=== PATIENT | female | born 1985 | race Caucasian/White ===

== ENCOUNTER 2017-10-28 19:41 | Emergency (ER) ==
[2017-10-28 19:45] VITALS: BP 124/83; TEMP 97.5; BMI 25.7
[2017-10-28] MEDS ORDERED: AUGMENTIN 500-125 MG TAB PO STA (20:01)
[2017-10-28] MEDS ORDERED: DECADRON 4 MG/ML SDV IM STA (20:01)
--- NOTE | 2017-10-28 20:04 | ED.PDOC ---
General ED Provider: Dr. KATRINA ESCOBAR Chief Complaint: Respiratory Complaint Stated Complaint: Came for the sinus headache, right side of the face and throat pain. Rt ear hurts and draing clear fluid. Taking tyleol 3-4 times Time Seen by Physician: 20:01 Mode of Arrival: Walk-In Information Source: Patient Primary Care Provider: SHANICE OCONNOR Nursing and Triage Documentation Reviewed and Agree: Yes Reviewed sepsis parameters & appropriate labs ordered?: No System Inflammatory Response Syndrome: Not Applicable Sepsis Protocol: For patient's 13 years and over: Temp is 96.8 and below OR 101 and greater Pulse >90 BPM Resp >20/minute Acutely Altered Mental Status Are patient's symptoms suggestive of a new infection, such as: -Pneumonia -Skin, Soft Tissue -Endocarditis -UTI -Bone, Joint Infection -Implantable Device -Acute Abdominal Infection -Wound Infection -Meningitis -Blood Stream Catheter Infection -Unknown EENT Complaint Exam - Nasal Complaint/Exam Symptoms Are: Still present Timing: Constant Initial Severity: Moderate Current Severity: Moderate Location: Right, Left Aggravating: Reports: URI Alleviating: Reports: None Associated Signs and Symptoms: Reports: Nasal congestion, Sinus pain, Nasal discharge Related History: Reports: Similar episode Nasal Surgical History: Reports: None Foreign Body Present: No Differential Diagnoses: Sinusitis Review of Systems - Review Of Systems Constitutional: Reports: No symptoms Eyes: Reports: No symptoms Ears, Nose, Mouth, Throat: Reports: Ear pain, Ear discharge, Nose discharge, Throat pain Respiratory: Reports: Cough Cardiac: Reports: No symptoms GI: Reports: No symptoms : Reports: No symptoms Musculoskeletal: Reports: No symptoms Skin: Reports: No symptoms Neurological: Reports: No symptoms Endocrine: Reports: No symptoms Hematologic/Lymphatic: Reports: No symptoms All Other Systems: Reviewed and Negative Past Medical History - Past Medical History Previously Healthy: Yes Endocrine: Reports: None Cardiovascular: Reports: None Respiratory: Reports: None Hematological: Reports: None Gastrointestinal: Reports: None Genitourinary: Reports: None Neuro/Psych: Reports: None Musculoskeletal: Reports: None Cancer: Reports: None Last Menstrual Period: 3 weeks ago Other Pertinent Past Medical History: toothache left lower carious molar(most posterior) - Surgical History General Surgical History: Reports: Appendectomy - Family History Family History: Reports: Unknown - Social History Smoking Status: Current every day smoker, Heavy tobacco smoker Smoking Cessation Counseling Time: > 10 min Hx Substance Use: No Alcohol Screening: None Physical Exam - Physical Exam Appearance: Well-appearing, No pain distress, Well-nourished Eyes: DIANA, EOMI, Conjunctiva clear ENT: Ears normal, Nose normal, Oropharynx normal, Erythema (rt side of the throat is red.) Respiratory: Airway patent, Breath sounds clear, Breath sounds equal, Respirations nonlabored Cardiovascular: RRR, Pulses normal, No rub, No murmur GI/: Soft, Nontender, No masses, Bowel sounds normal, No Organomegaly Musculoskeletal: Normal strength, ROM intact, No edema, No calf tenderness Skin: Warm, Dry, Normal color Neurological: Sensation intact, Motor intact, Reflexes intact, Cranial nerves intact, Alert, Oriented Psychiatric: Affect appropriate, Mood appropriate Critical Care Note - Critical Care Note Total Time (mins): 20 Course - Course Orders, Labs, Meds: Orders Category Date Time Status Amoxicillin/Potassium Clav [Augmentin 500-125 mg Tab] MEDS 10/28/17 20:01 Stat 1 tab PO ONCE STA Dexamethasone 4 mg/ml Inj [Decadron 4 mg/ml Sdv] MEDS 10/28/17 20:01 Stat 4 mg IM ONCE STA Vital Signs: Temp Pulse Resp BP Pulse Ox 10/28/17 19:41 97.5 F L 99 H 18 124/83 98 Departure - Departure Time of Disposition: 20:06 Disposition: HOME SELF-CARE Discharge Problem: URTI (acute upper respiratory infection) Sinusitis Qualifiers: Sinusitis location: maxillary Chronicity: acute Recurrence: non-recurrent Qualified Code(s): J01.00 - Acute maxillary sinusitis, unspecified Instructions: Sinusitis (ED) Condition: Stable Pt referred to PMD for follow-up: No IPMP verified?: No Additional Instructions: Take medication with food Increase hydration Probiotics Prescriptions: Amoxicillin/Potassium Clav [Augmentin 500-125 mg Tab] 1 tab PO Q12HR #20 tablet Prednisone 10 mg PO BIDWM #14 tablet Allergies/Adverse Reactions: Allergies ondansetron [From Zofran (as hydrochloride)] Adverse Reaction (Verified 19:45) Hives Home Medications: Ambulatory Orders Amoxicillin/Potassium Clav [Augmentin 500-125 mg Tab] 1 tab PO Q12HR #20 tablet 10/28/17 Prednisone 10 mg PO BIDWM #14 tablet 10/28/17 Disposition Discussed With: Patient, Family
== END 2017-10-28 20:30 | disposition home or self-care (01) ==
LOC: ED 19:41
DX: J06.9 Acute upper respiratory infection, unspecified (principal); J01.00 Acute maxillary sinusitis, unspecified
CPT/HCPCS: 96372; 99282

== ENCOUNTER 2017-12-14 07:22 | Emergency (ER) ==
[2017-12-14 07:27] VITALS: TEMP 97.6; BMI 25.9
[2017-12-14] MEDS ORDERED: MORPHINE 4 MG/ML SYRINGE IVP STA (07:33)
[2017-12-14] MEDS ORDERED: PHENERGAN 25 MG/ML VIAL 25 MG in SODIUM CHLORIDE 50 ML IV STA (07:33)
[2017-12-14] MEDS ORDERED: SODIUM CHLORIDE 1,000 ML IV STA (07:34)
[2017-12-14] MEDS ORDERED: PHENERGAN 25 MG/ML VIAL ONE (07:50)
--- NOTE | 2017-12-14 08:43 | US ---
EXAM: Ultrasound abdomen limited right upper quadrant HISTORY: Pain COMPARISON: None TECHNIQUE: Limited ultrasound abdomen right upper quadrant was performed FINDINGS: Pancreas obscured secondary bowel gas shadowing. Liver normal in size and echogenicity. Liver cyst with thin septation versus two adjacent cysts measuring up to 1.9 cm. Main portal vein pa tent with normal direction of flow. Gallbladder fluid-filled without gallbladder wall thickening, pe richolecystic fluid, or shadowing gallstones. No biliary duct dilation with common bile duct measuri ng 0.4 cm. Right kidney measures 9.6 cm in length without hydronephrosis. IMPRESSION: 1. Normal sonographic appearance of the gallbladder. 2. Liver cyst or cysts
--- NOTE | 2017-12-14 08:57 | ED.PDOC ---
General ED Provider: Dr. SARTHAK DAVALOS Chief Complaint: Abdominal Pain Stated Complaint: abdominal pain Time Seen by Physician: 07:30 (seen with ken present ) Mode of Arrival: Walk-In Information Source: Patient Exam Limitations: No limitations Primary Care Provider: SHANICE OCONNOR Nursing and Triage Documentation Reviewed and Agree: Yes Reviewed sepsis parameters & appropriate labs ordered?: Yes System Inflammatory Response Syndrome: Not Applicable (negative injury) Sepsis Protocol: For patient's 13 years and over: Temp is 96.8 and below OR 101 and greater Pulse >90 BPM Resp >20/minute Acutely Altered Mental Status Are patient's symptoms suggestive of a new infection, such as: -Pneumonia -Skin, Soft Tissue -Endocarditis -UTI -Bone, Joint Infection -Implantable Device -Acute Abdominal Infection -Wound Infection -Meningitis -Blood Stream Catheter Infection -Unknown GI Complaint Exam - Abdominal Pain Complaint/Exam Onset: Gradual Duration: 1 day Symptoms Are: Still present Timing: Constant Initial Severity: Moderate Current Severity: Moderate Location of Pain: RLQ Radiates To: Reports: Flank (right) Character: Reports: Cramping Aggravating: Reports: None Alleviating: Reports: None Associated Signs and Symptoms: Denies: Diaphoresis, Fever, Cough, Chest pain, Dizziness, Back pain, Constipation, Blood in stool, Dysuria, Urinary frequency, Decreased urine output, Decreased appetite, Vaginal bleeding, Vaginal discharge , Nausea, Vomiting, Diarrhea, Sore throat, Decreased activity AAA Risk Factors: Reports: None Cardiac Risk Factors: Reports: None Ectopic Risk Factors: Reports: Maternal age >30 Ovarian Torsion Risk Factors: Reports: Reproductive age Surgical Obstruction Risk Factors: Reports: None Related Surgical History: Reports: Appendectomy Patient Rh Status: Unknown Abdominal Findings: Absent: Abdominal distention, Unequal femoral pulses, Peritoneal signs, McBurney's Point tender, CVA Tenderness, Hernia, Inguinal swelling Differential Diagnoses: Bowel Obstruction, Constipation, Diverticulitis, Gastroenteritis, Irritable Bowel Syndrome, Renal Colic, Ureteral Stone, UTI, Ovarian Cyst Review of Systems - Review Of Systems Constitutional: Reports: No symptoms Eyes: Reports: No symptoms Ears, Nose, Mouth, Throat: Reports: No symptoms Respiratory: Reports: No symptoms Cardiac: Reports: No symptoms GI: Reports: Abdominal pain, Diarrhea : Reports: No symptoms Musculoskeletal: Reports: No symptoms Skin: Reports: No symptoms Neurological: Reports: No symptoms Endocrine: Reports: No symptoms Hematologic/Lymphatic: Reports: No symptoms All Other Systems: Reviewed and Negative Past Medical History - Past Medical History Previously Healthy: Yes Endocrine: Reports: None Cardiovascular: Reports: None Respiratory: Reports: None Hematological: Reports: None Gastrointestinal: Reports: None Genitourinary: Reports: None Neuro/Psych: Reports: None Musculoskeletal: Reports: None Cancer: Reports: None Last Menstrual Period: 2 weeks ago Other Pertinent Past Medical History: toothache left lower carious molar(most posterior) - Surgical History General Surgical History: Reports: Appendectomy - Family History Family History: Reports: Unknown - Social History Smoking Status: Current every day smoker, Heavy tobacco smoker Hx Substance Use: No Alcohol Screening: None Physical Exam - Physical Exam Appearance: Well-appearing, No pain distress, Well-nourished Eyes: DIANA, EOMI, Conjunctiva clear ENT: Ears normal, Nose normal, Oropharynx normal Respiratory: Airway patent, Breath sounds clear, Breath sounds equal, Respirations nonlabored Cardiovascular: RRR, Pulses normal, No rub, No murmur GI/: Soft, Nontender, No masses, Bowel sounds normal, No Organomegaly Musculoskeletal: Normal strength, ROM intact, No edema, No calf tenderness Skin: Warm, Dry, Normal color Neurological: Sensation intact, Motor intact, Reflexes intact, Cranial nerves intact, Alert, Oriented Psychiatric: Affect appropriate, Mood appropriate Critical Care Note - Critical Care Note Total Time (mins): 0 Course - Course Hematology/Chemistry: 12/14/17 07:44 12/14/17 07:44 Orders, Labs, Meds: Lab Review 12/14/17 12/14/17 12/14/17 07:44 07:44 07:44 WBC 15.11 H RBC 4.45 Hgb 13.5 Hct 39.9 MCV 89.7 MCH 30.3 MCHC 33.8 RDW Coeff of Keshawn 13.7 Plt Count 245 Immature Gran % (Auto) 0.4 Neut % (Auto) 84.8 Lymph % (Auto) 6.8 L [place] % (Auto) 7.6 Eos % (Auto) 0.1 Baso % (Auto) 0.3 Immature Gran # (Auto) 0.1 Neut # (Auto) 12.8 H Lymph # (Auto) 1.0 [place] # (Auto) 1.2 Eos # (Auto) 0.0 Baso # (Auto) 0.0 Sodium 137 Potassium 4.0 Chloride 99 Carbon Dioxide 27 Anion Gap 15.0 BUN 21 H Creatinine 0.74 Estimated GFR (MDRD) 92.00 BUN/Creatinine Ratio 28.37 Glucose 105 Calcium 8.8 Total Bilirubin 0.5 AST 9 L ALT 16 Alkaline Phosphatase 47 Total Protein 6.6 Albumin 3.5 Globulin 3.1 Albumin/Globulin Ratio 1.13 Amylase 66 Lipase 26 Serum , Qual Negative Urine Color Urine Clarity Urine pH Ur Specific [place] Urine Protein Urine Glucose (UA) Urine Ketones Urine Blood Urine Nitrite Urine Bilirubin Urine Urobilinogen Ur Leukocyte Esterase Urine Microscopic WBC Ur Squamous Epith Cells Urine Mucus 12/14/17 07:44 WBC RBC Hgb Hct MCV MCH MCHC RDW Coeff of Kes[place]wn Plt Count Immature Gran % (Auto) Neut % (Auto) Lymph % (Auto) [place] % (Auto) Eos % (Auto) Baso % (Auto) Immature Gran # (Auto) Neut # (Auto) Lymph # (Auto) [place] # (Auto) Eos # (Auto) Baso # (Auto) Sodium Potassium Chloride Carbon Dioxide Anion Gap BUN Creatinine Estimated GFR (MDRD) BUN/Creatinine Ratio Glucose Calcium Total Bilirubin AST ALT Alkaline Phosphatase Total Protein Albumin Globulin Albumin/Globulin Ratio Amylase Lipase Serum , Qual Urine Color Yellow Urine Clarity Clear Urine pH 8.5 Ur Specific [place] 1.020 Urine Protein 1+ Urine Glucose (UA) Negative Urine Ketones Negative Urine Blood Negative Urine Nitrite Negative Urine Bilirubin Negative Urine Urobilinogen 0.2 Ur Leukocyte Esterase Trace Urine Microscopic WBC 0-2 Ur Squamous Epith Cells 30-50 Urine Mucus 3+ Orders Category Date Time Status NPO REMINDER: IMAGING ONCE CARE 12/14/17 07:34 Completed ED IV/MEDIPORT/POWERPORT .ONCE EMERGENCY 12/14/17 07:32 Active AMYLASE Stat LAB 12/14/17 07:44 Completed CBC W/ AUTO DIFF Stat LAB 12/14/17 07:44 Completed COMPREHENSIVE METABOLIC PANEL Stat LAB 12/14/17 07:44 Completed LIPASE Stat LAB 12/14/17 07:44 Completed SERUM Stat LAB 12/14/17 07:44 Completed URINALYSIS C & S IF INDICATED Stat LAB 12/14/17 07:44 Completed 0.9 % Sodium Chloride [Saline Flush] MEDS 12/14/17 07:32 Active 1 syr IVF PRN PRN Morphine Sulfate [Morphine 4 mg/ml Syringe] MEDS 12/14/17 07:33 Discontinued 4 mg IVP ONCE STA Promethazine HCl [Phenergan 25 mg/ml Vial] MEDS 12/14/17 07:50 Discontinued 25 mg .ROUTE .STK-MED ONE Promethazine HCl [Phenergan 25 mg/ml Vial] 25 mg MEDS 12/14/17 07:33 Discontinued 0.9 % Sodium Chloride [Sodium Chloride] 50 ml IV ONCE Sodium Chloride 0.9% [Sodium Chloride] 1,000 ml MEDS 12/14/17 07:34 Active IV 125 mls/hr CT ABDOMEN/PELVIS WO CONTRAST Stat RADS 12/14/17 09:06 Ordered ULTRASOUND ABDOMEN, RT. UPPER QUAD [U/S ABDOMEN, RT. RADS 12/14/17 07:34 Completed UPPER QUAD] Stat Medications Generic Name Dose Route Start Last Admin Trade Name Freq PRN Reason Stop Dose Admin Sodium Chloride 1,000 mls @ 125 mls/hr 12/14/17 07:34 12/14/17 07:55 Sodium Chloride IV 12/14/17 15:33 125 mls/hr .Q8H STA Administration Sodium Chloride 1 syr 12/14/17 07:32 12/14/17 07:55 Saline Flush IVF 1 syr PRN PRN Administration To flush IV Discontinued Medications Generic Name Dose Route Start Last Admin Trade Name Freq PRN Reason Stop Dose Admin Promethazine HCl 25 mg/ Sodium 51 mls @ 75 mls/hr 12/14/17 07:33 12/14/17 07: 54 Chloride IV 12/14/17 08:13 75 mls/hr ONCE STA Administration Morphine Sulfate 4 mg 12/14/17 07:33 12/14/17 07:55 Morphine 4 Mg/Ml Syringe IVP 12/14/17 07:34 4 mg ONCE STA Administration Vital Signs: Temp Pulse Resp BP Pulse Ox 12/14/17 07:24 97.6 F 105 H 16 0/0 L 96 Departure - Departure Time of Disposition: 10:06 Disposition: HOME SELF-CARE Discharge Problem: Abdominal pain Instructions: Abdominal Pain (ED) Condition: Good Pt referred to PMD for follow-up: Yes IPMP verified?: No Additional Instructions: Please call your Family Physician as soon as possible to schedule a follow-up appointment. Allergies/Adverse Reactions: Allergies ondansetron [From Zofran (as hydrochloride)] Adverse Reaction (Verified 07:26) Hives Home Medications: Ambulatory Orders Tramadol HCl [Ultram] 50 mg PO TID PRN 12/14/17 Disposition Discussed With: Patient, Family
--- NOTE | 2017-12-14 09:43 | CT ---
EXAM: CT abdomen pelvis without contrast HISTORY: Pain, right lower quadrant COMPARISON: 10/17/2015 TECHNIQUE: CT abdomen pelvis performed without intravenous contrast. Coronal and sagittal reformatt ed images obtained. FINDINGS: Mild dependent density lung bases. No free air. No acute abnormalities of the bones. He art normal in size. Evaluation organ parenchyma limited without contrast. There is a cyst in the le ft lobe of liver measuring 1.8 cm. Gallbladder appears normal. Pancreas appears normal. Spleen kiana ears normal. Adrenals appear normal. Kidneys appear normal. No calculi visualized in the normal co urse of the ureters. Bladder wall thickening versus underdistension. Uterus unremarkable. Aorta no rmal in caliber. No lymphadenopathy or ascites. No dilated loops small bowel. Patient status post a ppendectomy. Fluid in the colon. Colon otherwise unremarkable. IMPRESSION: 1. Fluid in the colon can be correlated for diarrhea. 2. Bladder wall thickening versus underdistension can be correlated for cystitis.
[2017-12-14 19:07] VITALS: BP 100/69
== END 2017-12-14 11:04 | disposition home or self-care (01) ==
LOC: ED 07:22
DX: R10.9 Unspecified abdominal pain (principal); R19.7 Diarrhea, unspecified; F17.210 Nicotine dependence, cigarettes, uncomplicated
CPT/HCPCS: 36415; 80053; 81001; 82150; 83690; 84703; 85025; 96361; 96365; 96375; 99283